=== PATIENT | male | born 1990 | race African-American/Black ===

== ENCOUNTER 2022-07-01 18:06 | Emergency (ER) | payer OTHER, MEDICARE ==
[~2022-07-01] VITALS: Ht 182.9 cm; Wt 96.3 kg
[2022-07-01] MEDS ORDERED: IBUP800T27 PO (21:16)
[2022-07-01 21:28] VITALS: BP 139/72
== END 2022-07-01 21:28 | disposition home or self-care (01) ==
LOC: EDBD 18:06 → ER 18:06
DX: J06.9 Acute upper respiratory infection, unspecified (principal); I10 Essential (primary) hypertension; Z20.822 Contact with and (suspected) exposure to COVID-19
CPT/HCPCS: 36415; 71046; 87426; 87804